=== PATIENT | female | born 2000 | race African-American/Black ===

== ENCOUNTER 2021-03-20 17:31 | Inpatient (IN) | payer OTHER ==
[2021-03-20] MEDS ORDERED: ACETAMINOPHEN 1000 MG/100 ML VIAL (NON FORMULARY) IVPB ONE (18:11)
[2021-03-20] MEDS ORDERED: LACTATED RINGERS SOLUTION 1000 ML INFUS.BAG IV ONE (18:11)
[2021-03-20] MEDS ORDERED: ACETAMINOPHEN INJECTION 100 ML IVPB ONE (18:49)
[2021-03-20 19:13] LABS: BASO % 0.1 % (0-2.0); HEMATOCRIT 27.7 % (32.4-45.2); HEMOGLOBIN 8.5 GM/dL (10.7-15.3); LYMPH % 4.5 % (8-40); MCH 20.3 pg (25.7-33.7); MCHC 30.8 g/dl (32.0-36.0); MEAN PLT VOLUME 7.7 fl (7.5-11.1); MONO % 6.3 % (3.8-10.2); NEUT % 89.1 % (42.8-82.8); PLATELET COUNT 335 10^3/uL (134-434); RDW 17.7 % (11.6-15.6); WHITE BLOOD COUNT 24.9 K/mm3 (4.0-10.0)
[2021-03-20 19:20] LABS: INR 1.43 (0.83-1.09); PROTHROMBIN TIME (PATIENT) 17.1 SEC (9.7-13.0)
[2021-03-20 19:23] LABS: ACTIVATED PTT 29.9 SECONDS (25.2-36.5); CHLORIDE 107 mmol/L (98-107); SODIUM 138 mmol/L (136-145)
[2021-03-20 19:25] LABS: ALBUMIN 3.6 g/dl (3.4-5.0); CALCIUM 8.7 mg/dL (8.5-10.1)
[2021-03-20 19:26] LABS: ANION GAP 10 MMOL/L (8-16); BLOOD UREA NITROGEN 12.2 mg/dL (7-18); CO2 22 mmol/L (21-32); GLUCOSE,RANDOM 87 mg/dL (74-106)
[2021-03-20 19:29] LABS: SGOT/AST < 3 U/L (15-37); SGPT/ALT 14 U/L (13-61)
[2021-03-20 19:30] LABS: BILIRUBIN,TOTAL 0.5 mg/dL (0.2-1); TOT PROT 7.6 g/dl (6.4-8.2)
[2021-03-20 19:31] LABS: ALK PHOS 71 U/L (45-117)
[2021-03-20] MEDS ORDERED: PIPERACILLIN/TAZOB 4.5 GM 4.5 GM in DEXTROSE 5%-WATER 100 ML IVPB ONE (19:40)
[2021-03-20] MEDS ORDERED: VANCOMYCIN 1 GM in D5W (PRE-DOCKED) 1,000 MG/250 ML IVPB ONE (19:40)
[2021-03-20] MEDS ORDERED: PIPERACILLIN/TAZOB 4.5 GM 4.5 GM/100 ML BAG IVPB ONE (19:45)
[2021-03-20 20:28] LABS: ANISOCYTOSIS 1+
[2021-03-20 22:19] LABS: EPI CELLS 24 /uL (0-25.1); HYALINE CASTS 1 /uL (0-3.1); URINE APPEARANCE CLEAR; URINE BACTERIA 48 /uL (0-1359); URINE BILIRUBIN NEGATIVE (NEGATIVE); URINE COLOR YELLOW; URINE GLUCOSE (UA) NEGATIVE (NEGATIVE); URINE KETONE 1+ (NEGATIVE); URINE LEUK ESTERASE TRACE (NEGATIVE); URINE NITRITE NEGATIVE (NEGATIVE); URINE PROTEIN TRACE (NEGATIVE); URINE RBC 1015 /uL (0-23.9); URINE UROBILINOGEN 0.2 mg/dL (0.2-1.0); URINE WBC 52 /uL (0-25.8)
[2021-03-21] MEDS ORDERED: LACTATED RINGERS SOLUTION 1000 ML INFUS.BAG IV ONE (01:01)
[2021-03-21] MEDS ORDERED: LACTATED RINGERS SOLUTION 1,000 ML/1,000 ML INFUS.BAG IV SCH ×2 (01:15→01:17)
[2021-03-21] MEDS ORDERED: SODIUM CHLORIDE 1,000 ML IV STA (01:16)
[2021-03-21 02:40] VITALS: BMI 21.4
[2021-03-21] MEDS ORDERED: CEFTRIAXONE 2 GM in DEXTROSE 5%-WATER 100 ML IVPB ONE (03:15)
[2021-03-21] MEDS ORDERED: DEXTROSE 5%-WATER 100 ML IVPB ONE ×2 (03:20→12:02)
[2021-03-21 08:06] LABS: BASO % 0.4 % (0-2.0); EOS % 0.9 % (0-4.5); HEMATOCRIT 26.2 % (32.4-45.2); HEMOGLOBIN 8.1 GM/dL (10.7-15.3); LYMPH % 12.8 % (8-40); MCH 20.8 pg (25.7-33.7); MCHC 30.9 g/dl (32.0-36.0); MEAN CELL VOLUME 67.2 fl (80-96); MEAN PLT VOLUME 8.1 fl (7.5-11.1); MONO % 7.4 % (3.8-10.2); NEUT % 78.5 % (42.8-82.8); PLATELET COUNT 302 10^3/uL (134-434); RBC 3.89 M/mm3 (3.60-5.2); RDW 17.8 % (11.6-15.6); WHITE BLOOD COUNT 16.4 K/mm3 (4.0-10.0)
[2021-03-21 08:17] LABS: CHLORIDE 111 mmol/L (98-107); SODIUM 140 mmol/L (136-145)
[2021-03-21 08:19] LABS: MAGNESIUM 2.1 mg/dL (1.8-2.4)
[2021-03-21 08:21] LABS: ANION GAP 10 MMOL/L (8-16); BLOOD UREA NITROGEN 10.2 mg/dL (7-18); CALCIUM 8.5 mg/dL (8.5-10.1); CO2 19 mmol/L (21-32); GLUCOSE,RANDOM 78 mg/dL (74-106)
[2021-03-21 08:23] LABS: CREATININE 0.8 mg/dL (0.55-1.3); IRON SERUM 8 ug/dL (50-175); SGOT/AST < 3 U/L (15-37); SGPT/ALT 10 U/L (13-61)
[2021-03-21 08:24] LABS: PHOSPHOROUS 3.1 mg/dL (2.5-4.9); TOTAL IRON BINDING CAPACITY 294 ug/dL (250-450)
[2021-03-21 08:25] LABS: BILIRUBIN,TOTAL 0.3 mg/dL (0.2-1); TOT PROT 6.2 g/dl (6.4-8.2)
[2021-03-21 08:27] LABS: ALK PHOS 54 U/L (45-117)
[2021-03-21 08:31] LABS: ALBUMIN 2.9 g/dl (3.4-5.0)
[2021-03-21 08:44] LABS: RETICULOCYTES 1.24 % (0.5-1.5)
[2021-03-21] MEDS ORDERED: PANTOPRAZOLE SODIUM 40 MG VIAL IVPUSH SCH (10:00)
[2021-03-21] MEDS: ACETAMINOPHEN 325 MG TABLET (FP) PO PRN ×2 (10:50→21:02)
[2021-03-21] MEDS: CEFTRIAXONE 2 GM in DEXTROSE 5%-WATER 100 ML IVPB SCH (12:03)
[2021-03-21] MEDS ORDERED: IRON SUCROSE INJECTION 200 MG in SODIUM CHLORIDE 90 ML IVPB ONE (13:00)
[2021-03-21] MEDS ORDERED: SODIUM CHLORIDE 250 ML IV STA (13:54)
[2021-03-22 07:32] LABS: BASO % 0.9 % (0-2.0); HEMATOCRIT 27.8 % (32.4-45.2); HEMOGLOBIN 8.5 GM/dL (10.7-15.3); LYMPH % 15.9 % (8-40); MCH 20.8 pg (25.7-33.7); MCHC 30.7 g/dl (32.0-36.0); MEAN CELL VOLUME 67.8 fl (80-96); MEAN PLT VOLUME 7.8 fl (7.5-11.1); MONO % 10.1 % (3.8-10.2); NEUT % 68.1 % (42.8-82.8); PLATELET COUNT 325 10^3/uL (134-434); RDW 18.4 % (11.6-15.6); WHITE BLOOD COUNT 8.9 K/mm3 (4.0-10.0)
[2021-03-22 08:00] LABS: BLOOD UREA NITROGEN 10.9 mg/dL (7-18); CALCIUM 8.6 mg/dL (8.5-10.1); MAGNESIUM 2.3 mg/dL (1.8-2.4)
[2021-03-22 08:03] LABS: BILIRUBIN,TOTAL 0.3 mg/dL (0.2-1); CREATININE 0.8 mg/dL (0.55-1.3); TOT PROT 6.5 g/dl (6.4-8.2)
[2021-03-22] MEDS ORDERED: DEXTROSE 5%-WATER 100 ML IVPB ONE (08:43)
[2021-03-22] MEDS: CEFTRIAXONE 2 GM in DEXTROSE 5%-WATER 100 ML IVPB SCH (09:10)
[2021-03-22] MEDS: ACETAMINOPHEN 325 MG TABLET (FP) PO PRN (21:56)
[2021-03-23 08:17] VITALS: BP 90/47; PULSE 66; TEMP 98.5
[2021-03-23 08:22] LABS: BASO % 0.6 % (0-2.0); EOS % 4.3 % (0-4.5); HEMATOCRIT 26.3 % (32.4-45.2); HEMOGLOBIN 8.2 GM/dL (10.7-15.3); LYMPH % 26.7 % (8-40); MCH 20.5 pg (25.7-33.7); MCHC 31.2 g/dl (32.0-36.0); MEAN CELL VOLUME 65.9 fl (80-96); MEAN PLT VOLUME 7.6 fl (7.5-11.1); MONO % 12.2 % (3.8-10.2); NEUT % 56.2 % (42.8-82.8); PLATELET COUNT 327 10^3/uL (134-434); RBC 3.99 M/mm3 (3.60-5.2); RDW 17.9 % (11.6-15.6); WHITE BLOOD COUNT 6.5 K/mm3 (4.0-10.0)
[2021-03-23] MEDS ORDERED: DEXTROSE 5%-WATER 100 ML IVPB ONE (08:23)
[2021-03-23 08:41] LABS: ALBUMIN 2.8 g/dl (3.4-5.0); BLOOD UREA NITROGEN 9.9 mg/dL (7-18); CALCIUM 8.3 mg/dL (8.5-10.1); MAGNESIUM 2.3 mg/dL (1.8-2.4)
[2021-03-23 08:44] LABS: BILIRUBIN,TOTAL 0.2 mg/dL (0.2-1); TOT PROT 6.3 g/dl (6.4-8.2)
[2021-03-23 08:45] LABS: CREATININE 0.6 mg/dL (0.55-1.3)
[2021-03-23] MEDS: CEFTRIAXONE 2 GM in DEXTROSE 5%-WATER 100 ML IVPB SCH (08:59)
== END 2021-03-23 18:01 | disposition home or self-care (01) | DRG 720 ==
LOC: JER 17:31 → JERBED 22:30 → J7W 03-21 02:24 → OBSVTOIN 03-21 02:37
PROVIDERS: ADMIT Internal Medicine; ATTEND Nurse Practitioner Acute Care
DX: A41.9 Sepsis, unspecified organism (principal); A09 Infectious gastroenteritis and colitis, unspecified; R10.9 Unspecified abdominal pain; D50.9 Iron deficiency anemia, unspecified; D72.829 Elevated white blood cell count, unspecified
CPT/HCPCS: 36415; 74177-TC; 80053; 81003; 82728; 83540; 83550; 83605; 83615; 83735; 84100; 84436; 84443; 84703; 85025; 85045; 85610; 85730; 86140; 86850; 86900; 86901; 87040; 87045; 87046; 87077; 87086; 87177; 87205; 87209; 87324; 87328; 87329; 87427; 87449; 93005; 93010; 99285-25; C9803; G0378; J0131; J1756; Q9967; U0003; U0005

== ENCOUNTER 2022-02-28 14:12 | Emergency (ER) | payer OTHER ==
[2022-02-28 15:01] VITALS: BP 118/75; PULSE 79; TEMP 98.2; BMI 20.9
[2022-02-28] MEDS ORDERED: ALBUTEROL SO4 2.5/IPRATROPIUM 0.5 INH SOL 3 ML VIAL.NEB. NEB ONE ×2 (16:44→17:02)
[2022-02-28] MEDS ORDERED: DEXAMETHASONE 4 MG TABLET (FP) PO ONE (17:30)
[2022-02-28] MEDS ORDERED: DEXAMETHASONE SOD PHOSPHATE 10 MG/1 ML VIAL ONE (18:04)
[2022-02-28] MEDS ORDERED: KETOROLAC TROMETHAMINE 30 MG/1 ML VIAL IM ONE (18:17)
[2022-02-28] MEDS ORDERED: KETOROLAC TROMETHAMINE 15 MG/ML VIAL IM ONE (18:19)
[2022-02-28] MEDS ORDERED: KETOROLAC TROMETHAMINE 30 MG/1 ML VIAL ONE (18:48)
== END 2022-02-28 19:36 | disposition home or self-care (01) ==
LOC: JER 14:12
PROC: 3E0F7GC Introduction of Other Therapeutic Substance into Respiratory Tract, Via Natural or Artificial Opening (ICD-10-PCS; principal; 2022-02-28)
PROC: 3E0233Z Introduction of Anti-inflammatory into Muscle, Percutaneous Approach (ICD-10-PCS; 2022-02-28)
DX: R07.9 Chest pain, unspecified (principal); J45.41 Moderate persistent asthma with (acute) exacerbation
CPT/HCPCS: 71046-TC-FY; 93005; 93010; 99284-25

== ENCOUNTER 2022-09-18 18:46 | Emergency (ER) | payer OTHER ==
[2022-09-18 18:58] VITALS: BP 101/56; PULSE 75; RESP 20; TEMP 98.6; BMI 20.9
[2022-09-18] MEDS ORDERED: ALBUTEROL SO4 0.083% IH SOL 2.5 MG/3 ML VIAL.NEB. NEB ONE ×2 (19:47→19:56)
== END 2022-09-18 21:02 | disposition home or self-care (01) ==
LOC: JERFT 18:46
PROC: 3E0F7GC Introduction of Other Therapeutic Substance into Respiratory Tract, Via Natural or Artificial Opening (ICD-10-PCS; principal; 2022-09-18)
DX: T78.2XXA Anaphylactic shock, unspecified, initial encounter (principal)
CPT/HCPCS: 99283-25

== ENCOUNTER 2022-09-29 10:47 | Emergency (ER) | payer OTHER ==
[2022-09-29 11:08] VITALS: BMI 20.6
[2022-09-29] MEDS ORDERED: IBUPROFEN 600 MG TABLET (FP) PO ONE ×2 (12:01→12:06)
[2022-09-29] MEDS ORDERED: ACETAMINOPHEN/CAFFEINE/BUTALBITAL 1 TAB PO ONE (12:01)
[2022-09-29] MEDS ORDERED: METOCLOPRAMIDE HCL 10 MG TABLET (FP) PO ONE ×2 (12:03→12:06)
[2022-09-29] MEDS ORDERED: ACETAMINOPHEN/CAFFEINE/BUTALBITAL 1 TAB ONE (12:09)
[2022-09-29 15:34] VITALS: BP 107/68; PULSE 76; RESP 18; TEMP 98.9
== END 2022-09-29 15:35 | disposition home or self-care (01) ==
LOC: JERFT 10:47
DX: G43.909 Migraine, unspecified, not intractable, without status migrainosus (principal)
CPT/HCPCS: 70450-TC; 84703; 99284-25